=== PATIENT | male | born 1990 | race Hispanic/Latino ===

== ENCOUNTER 2023-04-21 16:48 | Emergency (ER) | payer SELFPAY ==
[2023-04-21] MEDS ORDERED: HYDROCODONE/APAP 5/325 MG TAB ONE (20:21)
[2023-04-21] MEDS ORDERED: LIDOCAINE 1% MPF 5 ML VIAL ONE (20:21)
[2023-04-21] MEDS ORDERED: hydrOXYzine HCL 25 MG TAB ONE (20:22)
[2023-04-21] MEDS ORDERED: TDAP (DIPHTH,PERTUSS(ACELL),TET VAC) 0.5 ML VIAL IMVAC ONE (20:22)
--- NOTE | 2023-04-21 21:38 | EDPHYS ---
Physician Documentation [facility] Name: Jose C Oro Age: 32 yrs Sex: Male : 1990 Arrival Date: 04/21/2023 Time: 16:48 Bed 11 Private MD: ED Physician Jcarlos Gannon HPI: 04/21 17:34 This 32 yrs old Male presents to ER via Unassigned with complaints of Laceration To Arm.kb 17:34 The patient has a laceration related to: cut on broken window occurred at home. The kb laceration(s) is(are) located on the dorsal aspect of left forearm. Onset: The symptoms/episode began/occurred just prior to arrival. Associated signs and symptoms: The patient has no apparent associated signs or symptoms. The patient has not experienced similar symptoms in the past. The patient has not recently seen a physician. Historical: - Allergies: 20:03 No Known Allergies; me1 - Home Meds: 20:03 None [Active]; me1 - PMHx: 20:03 None; me1 - PSHx: 20:03 None; me1 - Immunization history:: Adult Immunizations up to date. - Social history:: Smoking status: Patient denies any tobacco usage or history of. ROS: 17:34 Constitutional: Negative for fever, chills, and weight loss. kb 17:34 Skin: Positive for laceration(s), of the dorsal aspect of left forearm. 17:34 All other systems are negative. Exam: 17:34 Constitutional: This is a well developed, well nourished patient who is awake, alert, kb and in no acute distress. Head/Face: Normocephalic, atraumatic. ENT: Moist Mucous membranes Cardiovascular: Regular rate and rhythm with a normal S1 and S2. No gallops, murmurs, or rubs. No pulse deficits. Respiratory: Respirations even and unlabored. No increased work of breathing. Talking in full sentences MS/ Extremity: Pulses equal, no cyanosis. Neurovascular intact. Full, normal range of motion. Neuro: Awake and alert, GCS 15, oriented to person, place, time, and situation. Moves all extremities. Normal gait. 17:34 Skin: injury, laceration(s), the wound is approximately 2.5 cm(s), of the dorsal aspect of left forearm, that can be described as clean, no foreign body, irregular, without bleeding. Vital Signs: 20:02 BP 140 / 95; Pulse 95; Resp 18; Pulse Ox 100% on R/A; Weight 79.38 kg; me1 21:49 BP 159 / 90; Pulse 95; Resp 19; Pulse Ox 100% on R/A; me1 Laceration: 21:37 Wound Repair of 2.5cm ( 1.0in ) subcutaneous laceration to dorsal aspect of left kb forearm. Irregularly shaped.. Distal neuro/vascular/tendon intact. Anesthesia: Wound infiltrated with 3 mls of 1% lidocaine. Wound prep: Extensive cleansing with hibiclenz by me, Wound irrigation with saline by me, Wound explored. Skin closed with 5 5-0 Prolene using simple sutures and sterile technique. Patient tolerated well. MDM: 17:22 Patient medically screened. kb 17:35 Differential diagnosis: superficial laceration, tendon injury, vascular injury. Data kb reviewed: vital signs, nurses notes. Test considered but Not performed: X-ray: x-ray of forearm considered, but pt has full rom of extremity and fingers, no foreign body seen on exploration, pt denies FB. Counseling: I had a detailed discussion with the patient and/or guardian regarding the historical points, exam findings, and any diagnostic results supporting the discharge/admit diagnosis, the need for outpatient follow up, a family practitioner, to return to the emergency department if symptoms worsen or persist or if there are any questions or concerns that arise at home. 04/21 17:23 Order name: Dressing - Wound; Complete Time: 21:55 kb 04/21 17:23 Order name: Gloves, Sterile; Complete Time: 21:55 kb 04/21 17:23 Order name: Prolene, Sutures; Complete Time: 21:55 kb 04/21 17:23 Order name: Setup Suture Tray; Complete Time: 21:55 kb Administered Medications: 20:15 Drug: HYDROcodone-acetaminophen PO 5 mg-325 mg 1 tabs Route: PO; me1 21:42 Follow up: Response: No adverse reaction; Pain is decreased me1 20:15 Drug: hydrOXYzine PO 25 mg Route: PO; me1 21:42 Follow up: Response: No adverse reaction me1 20:48 Drug: Tetanus-Diphtheria Toxoid IM Adult 0.5 ml {Risk Control Representative: [employer] me1 Exp: 09/11/2023. Lot #: [id number]. } Route: IM; Site: right deltoid; 21:42 Follow up: Response: No adverse reaction me1 21:55 Drug: Lidocaine Infiltration (1 %) 1 vials Volume: 5 ml; Route: Infiltration; me1 Disposition Summary: 04/21/23 21:38 Discharge Ordered Location: Home kb Condition: Stable kb Diagnosis - Laceration without foreign body of left forearm kb Followup: kb - With: Emergency Department - When: As needed - Reason: Worsening of condition Followup: kb - With: Private Physician - When: 2 - 3 days - Reason: Recheck today's complaints, Continuance of care, Re-evaluation by your physician Discharge Instructions: - Discharge Summary Sheet kb - Laceration Care, Adult, [id number] kb Forms: - Medication Reconciliation Form kb - Thank You Letter kb - Antibiotic Education kb - Prescription Opioid Use kb - Patient Portal Instructions kb - Leadership Thank You Letter kb Signatures: Mindy Wetzel FNP-C FNP-Ckb Eddleman, Michelle, RN RN me1
--- NOTE | 2023-04-21 21:38 | ER ---
Nurse's Notes [facility] Name: Jose C Oro Age: 32 yrs Sex: Male : 1990 Arrival Date: 04/21/2023 Time: 16:48 Bed 11 Private MD: Diagnosis: Laceration without foreign body of left forearm Presentation: 04/21 17:45 Chief complaint: Patient states: cut left forearm with piece of glass. Coronavirus iw screen: At this time, the client does not indicate any symptoms associated with coronavirus-19. Ebola Screen: Patient negative for fever greater than or equal to 101.5 degrees Fahrenheit, and additional compatible Ebola Virus Disease symptoms Patient denies exposure to infectious person. Patient denies travel to an Ebola-affected area in the 21 days before illness onset. No symptoms or risks identified at this time. Onset of symptoms was April 21, 2023. 17:45 Method Of Arrival: Ambulatory iw 17:45 Acuity: BONY 4 iw 20:02 Initial Sepsis Screen: Does the patient meet any 2 criteria? No. Patient's initial me1 sepsis screen is negative. Does the patient have a suspected source of infection? No. Patient's initial sepsis screen is negative. Risk Assessment: Do you want to hurt yourself or someone else? Patient reports no desire to harm self or others. Triage Assessment: 20:03 General: Appears uncomfortable, Behavior is cooperative, appropriate for age, anxious. me1 Pain: Complains of pain in left arm Pain does not radiate. Pain currently is 8 out of 10 on a pain scale. Quality of pain is described as throbbing, Pain began suddenly, 3 hours ago. Is continuous. Neuro: Level of Consciousness is awake, alert, obeys commands, Oriented to person, place, time, situation, Appropriate for age. Cardiovascular: Capillary refill < 3 seconds Patient's skin is warm and dry. Respiratory: Airway is patent Respiratory effort is even, unlabored, Respiratory pattern is regular, symmetrical. Injury Description: Laceration sustained to dorsal aspect of left forearm. Historical: - Allergies: 20:03 No Known Allergies; me1 - Home Meds: 20:03 None [Active]; me1 - PMHx: 20:03 None; me1 - PSHx: 20:03 None; me1 - Immunization history:: Adult Immunizations up to date. - Social history:: Smoking status: Patient denies any tobacco usage or history of. Screenin:07 [facility] ED Fall Risk Assessment (Adult) History of falling in the last 3 months, me1 including since admission No falls in past 3 months (0 pts) Confusion or Disorientation No (0 pts) Intoxicated or Sedated No (0 pts) Impaired Gait No (0 pts) Mobility Assist Device Used No (0 pt) Altered Elimination No (0 pt) Score/Fall Risk Level 0 - 2 = Low Risk. Abuse screen: Denies threats or abuse. Nutritional screening: No deficits noted. Tuberculosis screening: No symptoms or risk factors identified. Assessment: 20:07 General: See triage assessment. . me1 20:15 Musculoskeletal: laceration to left forearm. me1 21:49 Reassessment: Patient is alert, oriented x 3, equal unlabored respirations, skin me1 warm/dry/pink. Vital Signs: 20:02 BP 140 / 95; Pulse 95; Resp 18; Pulse Ox 100% on R/A; Weight 79.38 kg; me1 21:49 BP 159 / 90; Pulse 95; Resp 19; Pulse Ox 100% on R/A; me1 ED Course: 16:51 Patient arrived in ED. im 16:54 Sony Mckeon PA is PHCP. cp 16:54 Jcarlos Gannon MD is Attending Physician. cp 17:22 PHCP role handed off by Sony Mckeon PA kb 17:22 Mindy Wetzel FNP-C is PHCP. kb 17:46 Triage completed. iw 20:02 Janette Pablo, CAMI is Primary Nurse. me1 20:03 Arm band placed on Patient placed in waiting room. me1 20:07 Patient has correct armband on for positive identification. Bed in low position. Call nm1 light in reach. Side rails up X 1. Provided Education on: POC. Verbalized understanding. . 20:07 No provider procedures requiring assistance completed. Patient did not have IV access me1 during this emergency room visit. Administered Medications: 20:15 Drug: HYDROcodone-acetaminophen PO 5 mg-325 mg 1 tabs Route: PO; me1 21:42 Follow up: Response: No adverse reaction; Pain is decreased me1 20:15 Drug: hydrOXYzine PO 25 mg Route: PO; me1 21:42 Follow up: Response: No adverse reaction me1 20:48 Drug: Tetanus-Diphtheria Toxoid IM Adult 0.5 ml {Traffic Rate Clerk: [facility] ([employer]). me1 Exp: 09/11/2023. Lot #: [id number]. } Route: IM; Site: right deltoid; 21:42 Follow up: Response: No adverse reaction me1 21:55 Drug: Lidocaine Infiltration (1 %) 1 vials Volume: 5 ml; Route: Infiltration; me1 Medication: 20:15 Vaccine Information Statement (VIS) provided today. Questions and/or concerns me1 addressed. VIS edition date: March 30, 2023. Outcome: 21:38 Discharge ordered by . kb 21:50 Discharged to home ambulatory, with significant other. me1 21:50 Condition: stable 21:50 Discharge instructions given to patient, Instructed on discharge instructions, follow up and referral plans. Demonstrated understanding of instructions, follow-up care. 21:55 Patient left the ED. me1 Signatures: Mindy Wetzel, [employer]ADE SHOEMAKER-C MEDICAL GRADE SHOEMAKER-Ckb Aissatou Mcgill, RN RN Sony Matos PA PA cp Mendoza, Itzel im Eddleman, Michelle, RN RN me1
[2023-04-22 00:29] VITALS: O2SAT 100
[2023-04-22 00:30] VITALS: BP 159/90
== END 2023-04-21 21:55 | disposition home or self-care (01) ==
LOC: ER 16:48
PROC: 0HQEXZZ Repair Left Lower Arm Skin, External Approach (ICD-10-PCS; principal; 2023-04-21)
DX: S51.812A Laceration without foreign body of left forearm, initial encounter (principal); Z23 Encounter for immunization
CPT/HCPCS: 90471; 99284; J2001